=== PATIENT | male | born 1990 | race Caucasian/White ===

== ENCOUNTER 2019-11-29 23:26 | Emergency (ER) | payer OTHER ==
[2019-11-29 23:46] VITALS: PULSE 78
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
[2019-11-29] MEDS ORDERED: NORCO 5/325 MG PO ONE (23:51)
[2019-11-29] MEDS ORDERED: NORCO 5/325 MG ONE (23:54)
[2019-11-30 00:20] VITALS: BP 120/78; O2SAT 97
== END 2019-11-30 00:10 | disposition home or self-care (01) ==
LOC: ED 23:26
DX: S30.22XA Contusion of scrotum and testes, initial encounter (principal); N50.812 Left testicular pain; W51.XXXA Accidental striking against or bumped into by another person, initial encounter; Y93.01 Activity, walking, marching and hiking; Y92.29 Other specified public building as the place of occurrence of the external cause
CPT/HCPCS: 99283; A9270-GY